=== PATIENT | male | born 1960 | race Caucasian/White ===

== ENCOUNTER 2024-09-14 04:03 | Day surgery (SDC) | payer BC ==
[2024-09-12 09:47] VITALS: BMI 27.8
[2024-09-14] MEDS ORDERED: LIDOCAINE 1%/EPI 1:100000 (20 ML MULTI DOSE VIAL) ONE (09:41)
[2024-09-14] MEDS ORDERED: BUPIVACAINE HCL/PF 0.5% (5MG/ML) 10 ML VIAL ONE (09:41)
[2024-09-14] MEDS ORDERED: PROPOFOL 20 ML ONE (09:50)
[2024-09-14] MEDS ORDERED: SUCCINYLCHOLINE CHLORIDE 200 MG/10 ML SYRINGE ONE (09:50)
[2024-09-14] MEDS ORDERED: MIDAZOLAM HCL 2 MG/2 ML SINGLE DOSE VIAL ONE (09:50)
[2024-09-14] MEDS ORDERED: ALBUTEROL SO4 HFA INHALER IH ONE (09:56)
[2024-09-14] MEDS: ceFAZolin SODIUM 1 GM VIAL IVPB ONE (10:18)
[2024-09-14] MEDS ORDERED: oxyCODONE HCL 5 MG TABLET PO PRN (10:32)
[2024-09-14] MEDS ORDERED: ONDANSETRON 4 MG/2 ML VIAL IVPUSH PRN (10:32)
[2024-09-14] MEDS: LIDOCAINE 1%/EPI 1:100000 (20 ML MULTI DOSE VIAL) IJ ONE ×2 (10:39)
[2024-09-14] MEDS: BUPIVACAINE HCL/PF 0.5% (5 MG/ML) 30 ML VIAL IJ ONE ×2 (10:39)
[2024-09-14] MEDS ORDERED: LACTATED RINGERS SOLUTION 1,000 ML IV SCH (10:45)
[2024-09-14] MEDS ORDERED: LIDOCAINE HCL/PF 2% SDV 5ML VIAL ONE (11:25)
[2024-09-14] MEDS ORDERED: DEXAMETHASONE SOD PHOSPHATE 4 MG/1 ML VIAL ONE (11:25)
[2024-09-14] MEDS ORDERED: ONDANSETRON 4 MG/2 ML VIAL ONE (11:25)
[2024-09-14] MEDS ORDERED: ACETAMINOPHEN INJECTION 100 ML ONE (12:32)
[2024-09-14] MEDS: ACETAMINOPHEN 1000 MG/100 ML BAG IVPB ONE (12:34)
[2024-09-14 14:04] VITALS: RESP 18
[2024-09-14 16:16] VITALS: BP 118/78; PULSE 77; TEMP 98
== END 2024-09-14 15:45 | disposition home or self-care (01) ==
LOC: JASU-SURG 04:03
PROVIDERS: ATTEND Surgery
PROC: 0GTG0ZZ Resection of Left Thyroid Gland Lobe, Open Approach (ICD-10-PCS; principal; 2024-09-14 09:30)
DX: E04.9 Nontoxic goiter, unspecified (principal)
CPT/HCPCS: 86850; 86900; 86901; 88307-TC; 94760; J0131